=== PATIENT | male | born 1975 | race Caucasian/White ===

== ENCOUNTER 2019-06-30 09:15 | Emergency (ER) | payer MEDICAID ==
[~2019-06-30] VITALS: Ht 160 cm; Wt 67.3 kg
[~2019-06-30 09:15] MED LIST: CEPH-443 PO
[2019-06-30 09:18] VITALS: BP 116/70; PULSE 60; RESP 20; Ht 160 cm; Wt 67.3 kg
[2019-06-30] MEDS ORDERED: DIPHTH/TET/ACEL PERTUSS (ADULT) 0.5 ML VIAL IM* ONE (09:30)
--- NOTE | 2019-06-30 09:33 | ERD ---
ER Documentation Chief Complaint Chief Complaint left hand laceration - happened yesterday HPI 44-year-old male presents with laceration to left hand at the base of his thumb that occurred yesterday. States he slices him with a piece of metal. He is right-hand dominant. No numbness or tingling or loss of range of motion. Denies possibility of retained foreign body. Unsure last tetanus vaccination. ROS All systems reviewed and are negative except as per history of present illness. FmHx Family History: No diabetes Physical Exam Vitals Vital Signs Date Temp Pulse Resp B/P (MAP) Pulse Ox O2 O2 Flow FiO2 Time Delivery Rate 06/30/19 97.4 60 20 116/70 100 09:18 (85) Physical Exam Const: No acute distress Head: Atraumatic Eyes: Normal Conjunctiva ENT: Normal External Ears, Nose and Mouth. Neck: Full range of motion. No meningismus. Resp: Clear to auscultation bilaterally Cardio: Regular rate and rhythm, no murmurs Hand -left Skin: Superficial V-shaped laceration to palmar surface of left hand at base of thumb, borders are starting to heal and granulate, not gaping Compartments: Soft Sensation: Intact shoulder/pinky/middle finger/thumb web space Bones: Nontender Snuffbox: Nontender Joints: No effusion Wrist: Flex/Ext: Normal Uln/Radial deviation: Normal Pron/Supination Normal Finger: Flex/Ext: Normal Add/abd: Normal Thumb: Flex/Ext: Normal Opposition: Normal Thumbs up: Normal Results 24 hrs Current Medications Medications Dose Sig/Lázaro Start Time Status Last (Trade) Ordered Route PRN Stop Time Admin Dose Reason Admin Diphtheria/ 0.5 ml ONCE ONCE 06/30/19 Tetanus/Acell IM* 09:30 Pertussis 06/30/19 09:31 (Adacel) Procedures/MDM Patient is here with laceration that occurred yesterday and therefore cannot be repaired however it is very superficial. He was given a tetanus vaccination. His wound was cleaned and irrigated here. Loosely closed with Steri-Strips. He should return in 2 days for wound check. Patient counseled regarding my diagnostic impression and care plan. Prior to discharge all questions answered. Pt agrees with treatment plan and understands strict return precautions. Pt is instructed to follow up with primary care provider within 24-48 hours. Precautionary instructions provided including instructions to return to the ER if not improving or for any worsening or changing symptoms or concerns. Departure Diagnosis: Primary Impression: Laceration Condition: Stable Patient Instructions: Toya Dudley Additional Instructions: Call your primary care doctor TOMORROW for an appointment during the next 1-2 days.See the doctor sooner or return here if your condition worsens before your appointment time. FRANCISCA FELIX PA-C Jun 30, 2019 09:33
== END 2019-06-30 10:09 | disposition home or self-care (01) ==
LOC: FTE 09:15
DX: S61.412A Laceration without foreign body of left hand, initial encounter (principal); W25.XXXA Contact with sharp glass, initial encounter; Y92.9 Unspecified place or not applicable; Z23 Encounter for immunization
CPT/HCPCS: 90471; 90715; Z7502

== ENCOUNTER 2019-07-02 11:02 | Emergency (ER) | payer MEDICAID ==
[~2019-07-02] VITALS: Ht 165.1 cm; Wt 66.7 kg
[2019-07-02 11:07] VITALS: BP 113/67; PULSE 78; RESP 17; Ht 165.1 cm; Wt 66.7 kg
[2019-07-02] MEDS ORDERED: BACITRACIN 0.9 GM OINT TOP ONE (11:30)
[2019-07-02] MEDS ORDERED: BACITRACIN 0.5%/ZINC 28.35 GM OINT TOP ONE (12:00)
--- NOTE | 2019-07-02 13:02 | ERD ---
ER Documentation Chief Complaint Chief Complaint WOUND CHECK ON RECENT LAC REPAIR, LEFT HAND HPI 44-year-old [id number] male presents to the ED for wound recheck of his laceration sustained 3 days ago. Patient sustained laceration while he was working with metal, he did not come to the ER until the day afterwards. Laceration was repaired with Steri-Strips and covered. He presents again today for wound recheck. Reports improving pain, no numbness or tingling. No significant discharge. No fevers or chills. No new injuries. ROS All systems reviewed and are negative except as per history of present illness. Medications Home Meds Active Scripts Cephalexin* (Keflex*) 500 Mg Capsule, 500 MG PO QID for 5 Days, CAP Prov:CHARISSA BUNCH PA-C 07/02/19 Allergies Allergies: Coded Allergies: No Known Allergy (Unverified , 06/30/19) PMhx/Soc Medical and Surgical Hx: pt denies Medical Hx, pt denies Surgical Hx Hx Alcohol Use: No Hx Substance Use: No Hx Tobacco Use: No Smoking Status: Never smoker FmHx Family History: No diabetes Physical Exam Vitals Vital Signs Date Temp Pulse Resp B/P (MAP) Pulse Ox O2 O2 Flow FiO2 Time Delivery Rate 07/02/19 97.9 78 17 113/67 99 11:07 (82) Physical Exam Const: No acute distress Head: Atraumatic Eyes: Normal Conjunctiva ENT: Normal External Ears, Nose and Mouth. Ext: + 2 x 2 centimeter V-shaped laceration to the palmar aspect of the left hand near the wrist, mild amount of dehiscence and erythema at the wound margins appreciated. No tenderness, no warmth. granulation tissue appreciated. Full range of motion of his wrist and fingers. Sensation of the fingers and hand intact. Right upper extremity normal. Neur: Awake and alert Psych: Normal Mood and Affect Results 24 hrs Current Medications Medications Dose Sig/Lázaro Start Time Status Last (Trade) Ordered Route PRN Stop Time Admin Dose Reason Admin Bacitracin 1 applic ONCE ONCE 07/02/19 DC 07/02/19 (Bacitracin TOP 11:30 11:45 Oint (Ud)) 07/02/19 11:31 Bacitracin 1 applic ONCE ONCE 07/02/19 DC 07/02/19 (Bacitracin TOP 12:00 11:45 0.5%/ Zinc 07/02/19 12:00 Oint) Procedures/MDM PROCEDURES: Wound was dressed with bacitracin and covered with dry gauze. MEDICAL DECISION MAKIN-year-old male presents for wound recheck status post laceration sustained 3 days ago. Records reviewed, this was a delayed wound closure as patient presented greater than 24 hours after the initial incident. Patient does have some mild erythema and dehiscence around the wound, given history will cover prophylactically with antibiotics for the next few days. There is no evidence of significant cellulitis, sepsis or deep space tissue infection at this time. Patient is neurovascularly intact and has full range of motion of his fingers and wrist. I have low suspicion for neurovascular or tendon injury. He was told to follow-up with your doctor next week, strict return precautions were discussed. PRESCRIPTIONS: Keflex SPECIALIST FOLLOW UP RECOMMENDED: None Departure Diagnosis: Primary Impression: Encounter for wound re-check Condition: Stable Patient Instructions: Post Op Wound Check, Pain Referrals: [facility] YOU HAVE RECEIVED A MEDICAL SCREENING EXAM AND THE RESULTS INDICATE THAT YOU DO NOT HAVE A CONDITION THAT REQUIRES URGENT TREATMENT IN THE EMERGENCY DEPARTMENT. FURTHER EVALUATION AND TREATMENT OF YOUR CONDITION CAN WAIT UNTIL YOU ARE SEEN IN YOUR DOCTORS OFFICE WITHIN THE NEXT 1-2 DAYS. IT IS YOUR RESPONSIBILITY TO MAKE AN APPOINTMENT FOR FOLOW-UP CARE. IF YOU HAVE A PRIMARY DOCTOR --you should call your primary doctor and schedule an appointment IF YOU DO NOT HAVE A PRIMARY DOCTOR YOU CAN CALL OUR PHYSICIAN REFERRAL HOTLINE AT IF YOU CAN NOT AFFORD TO SEE A PHYSICIAN YOU CAN CHOSE FROM THE FOLLOWING [facility] [address] [facility] [address] [facility] [address] [facility] [address] [facility] [address] [facility]. [facility]. [address] [facility]. [facility] YOU HAVE RECEIVED A MEDICAL SCREENING EXAM AND THE RESULTS INDICATE THAT YOU DO NOT HAVE A CONDITION THAT REQUIRES URGENT TREATMENT IN THE EMERGENCY DEPARTMENT. FURTHER EVALUATION AND TREATMENT OF YOUR CONDITION CAN WAIT UNTIL YOU ARE SEEN IN YOUR DOCTORS OFFICE WITHIN THE NEXT 1-2 DAYS. IT IS YOUR RESPONSIBILITY TO MAKE AN APPOINTMENT FOR FOLOW-UP CARE. IF YOU HAVE A PRIMARY DOCTOR --you should call your primary doctor and schedule and appointment IF YOU DO NOT HAVE A PRIMARY DOCTOR YOU CAN CALL OUR PHYSICIAN REFERRAL HOTLINE AT . IF YOU CAN NOT AFFORD TO SEE A PHYSICIAN YOU CAN CHOSE FROM THE FOLLOWING [facility] INSTITUTIONS: [facility] [address] [place] [address] [facility] [address] [place] [address] [facility] [address] [place] [address] Additional Instructions: Take The antibiotics for the next 5 days. Keep the wound clean and close for the next 48 hours. Return here in 2 days for recheck. Return here sooner for any new or worsening symptoms. CHARISSA BUNCH PA-C Jul 02, 2019 13:02
== END 2019-07-02 11:51 | disposition home or self-care (01) ==
LOC: FTE 11:02
DX: Z48.01 Encounter for change or removal of surgical wound dressing (principal)
CPT/HCPCS: Z7502; Z7610; 99281